=== PATIENT | male | born 1940 | race Hispanic/Latino ===

== ENCOUNTER 2022-12-05 13:54 | Emergency (ER) | payer OTHER ==
[~2022-12-05] VITALS: Ht 167.6 cm; Wt 75.9 kg
[2022-12-05] MEDS ORDERED: ACETAMINOPHEN 325 MG TAB ONE (16:41)
[2022-12-05] MEDS ORDERED: ACETAMINOPHEN 325 MG TAB PO ONE (16:45)
== END 2022-12-05 17:00 | disposition home or self-care (01) ==
LOC: FSED 14:30
DX: S46.092A Other injury of muscle(s) and tendon(s) of the rotator cuff of left shoulder, initial encounter (principal); W01.0XXA Fall on same level from slipping, tripping and stumbling without subsequent striking against object, initial encounter; Y93.01 Activity, walking, marching and hiking; Y92.89 Other specified places as the place of occurrence of the external cause; R03.0 Elevated blood-pressure reading, without diagnosis of hypertension
CPT/HCPCS: 99284